=== PATIENT | female | born 1975 | race Caucasian/White ===

== ENCOUNTER 2020-10-13 08:27 | Day surgery (SDC) | payer BC, OTHER ==
[~2020-10-13] VITALS: Ht 152.4 cm; Wt 87.7 kg
[~2020-10-13 08:27] MED LIST: AMOXICILLIN 8751 TAB PO; AMOXICILLIN875 MG PO; ANTIVERT 25MG25 MG PO; BENADRYL25 M2 PO; CIMZIA200 MG/ML SC; EMBREL; ENBREL50 MG/ML SC; ENSTILAR 0.005%60 GM TP; FLEXERIL 1010 MG/TAB PO; GLUCOPHAGE1000 MG PO; HUMIRA40 MG/0.8 MR; IBUPROFEN1 CRY; IBUPROFEN200 M1 PO; LEVAQUIN 5500 MG/TAB PO; LORTAB 5/500 501 TAB PO; METHOTREXA2.5 MG/TAB PO; METHOTREXATE2.5 MG PO; NAPROXEN 3375 MG/TAB PO; NO HOME MEDICATIONS; NORCO 325 MG-51 TAB PO; PERCOCET 325 MG1 TA2 PO; PERCOCET 5/321 UDTAB PO; PHENERGAN 25 TA25 MG PO; ROXICODONE 55 MG/TAB PO; SIMPONI50 MG/0.5 SC; STELARA45 MG/0.5 SC; TALTZ AUTO80 MG/1 ML SQ; TEMOVATE OINT30 GM TOP; TREXALL5 MG; TREXALL5 MG PO; ULTRAM 50MG TAB50 MG PO; VALTREX1 GM PO; [UNRECOGNIZED DRUG - CODE] TOP; [UNRECOGNIZED DRUG - OTHER]; embrel
[2020-10-13] MEDS ORDERED: OZEMPIC0.25 MG/0. SQ (08:51)
[2020-10-13 09:13] VITALS: BP 148/84; PULSE 89; TEMP 98.7
[2020-10-13 10:00] VITALS: BP 110/74; PULSE 88
--- NOTE | 2020-10-13 10:00 | NUR ---
Pt to [facility] via cart from [employer]. Pt drowsy, but awake. Pt ambulates to recliner with stand by assistance. Warm blanket provided. in room. Soda and crackers given per pt request. Will continue to monitor. Call light within reach.
[2020-10-13 10:15] VITALS: BP 120/76; PULSE 83
--- NOTE | 2020-10-13 10:15 | NUR ---
Pt tolerating food and fluids without difficulties. Denies needs. Call light within reach.
[2020-10-13 10:30] VITALS: BP 136/97; PULSE 78
--- NOTE | 2020-10-13 10:30 | NUR ---
Discharge instructions reviewed. Pt voices understanding. IV site discontinued with all parts intact. Pt up to dress. Call light within reach.
--- NOTE | 2020-10-13 10:45 | NUR ---
Pt escorted to private car via wheel chair. Pt accompanied home by her .
== END 2020-10-13 10:45 | disposition home or self-care (01) ==
LOC: SDCO 08:27
DX: K62.89 Other specified diseases of anus and rectum (principal); K57.30 Diverticulosis of large intestine without perforation or abscess without bleeding; K64.8 Other hemorrhoids; K59.00 Constipation, unspecified; R19.7 Diarrhea, unspecified; K21.9 Gastro-esophageal reflux disease without esophagitis; M19.90 Unspecified osteoarthritis, unspecified site; E11.9 Type 2 diabetes mellitus without complications; Z79.84 Long term (current) use of oral hypoglycemic drugs; Z79.899 Other long term (current) drug therapy; Z90.710 Acquired absence of both cervix and uterus; Z88.5 Allergy status to narcotic agent; Z88.6 Allergy status to analgesic agent; Z88.8 Allergy status to other drugs, medicaments and biological substances; Z88.1 Allergy status to other antibiotic agents; Z20.822 Contact with and (suspected) exposure to COVID-19; Z90.49 Acquired absence of other specified parts of digestive tract; Z83.3 Family history of diabetes mellitus; Z80.0 Family history of malignant neoplasm of digestive organs; Z82.3 Family history of stroke
CPT/HCPCS: J2704; J7030

== ENCOUNTER 2021-03-30 08:44 | Emergency (ER) | payer BC ==
[~2021-03-30] VITALS: Ht 152.4 cm; Wt 86.4 kg
[~2021-03-30 08:44] MED LIST changes: +OZEMPIC0.25 MG/0. SQ
[2021-03-30 08:56] VITALS: TEMP 97
[2021-03-30] MEDS ORDERED: FOLIC ACID 11 MG/TA1 PO (09:05)
[2021-03-30] MEDS ORDERED: TREMFYA100 MG/1 M SQ (09:05)
[2021-03-30] MEDS ORDERED: ANTIVERT 25MG25 MG PO (09:06)
[2021-03-30 09:32] LABS: BASO # 0.1 K/mm3 (0.0-0.2); BASO % 0.6 % (0.0-2.0); EOS # 0.1 K/mm3 (0.0-0.7); EOS % 1.7 % (0-4.0); GRAN # 4.6 K/mm3 (1.4-6.5); GRAN % 59.1 % (42.2-75.2); HEMATOCRIT 43.7 % (37.0-47.0); HEMOGLOBIN 15.7 g/dl (12.5-16.0); LYMPH # 2.4 K/mm3 (1.2-3.4); LYMPH % 30.6 % (20.0-51.0); MEAN CELL VOLUME 82 fl (80.0-100.0); MEAN CORPUSCULAR HEMOGLOBIN 30 pg (27.0-31.0); MEAN CORPUSCULAR HGB CONC 36 g/dl (33.0-37.0); MEAN PLATELET VOLUME 9.8 fl (7.4-10.4); MONO # 0.6 K/mm3 (0.1-0.6); MONO % 7.6 % (1.7-9.3); PLATELET COUNT 231 K/mm3 (130-400); RED BLOOD COUNT 5.32 M/mm3 (4.10-5.30); REDCELL DISTRIBUTION WIDTH-CV 11.2 % (11.5-14.5)
[2021-03-30 09:43] LABS: ALANINE AMINOTRANSFERASE 21 U/L (0-55); ALBUMIN 3.7 gm/dL (3.5-5.0); ALKALINE PHOSPHATASE 116 U/L (0-750); ANION GAP 9 mmol/L (7-16); AST,SGOT 17 U/L (5-34); BILIRUBIN,TOTAL 0.8 mg/dL (0.2-1.2); BLOOD UREA NITROGEN 10 mg/dL (7-19); CALCIUM 9.3 mg/dL (8.4-10.2); CARBON DIOXIDE 22 mmol/L (22-29); CHLORIDE 106 mmol/L (98-107); CREATININE, serum 0.73 mg/dL (0.57-1.11); GLUCOSE 269 mg/dL (70-99); SODIUM 137 mmol/L (136-145); TOTAL PROTEIN 7.8 gm/dL (6.2-8.1)
[2021-03-30 10:02] LABS: TSH w REFLEX 0.886 uIU/mL (0.350-4.940)
[2021-03-30 10:03] LABS: COLLECTION METHOD CLEAN CATCH
[2021-03-30 10:05] LABS: TROPONIN-I < 0.010 ng/mL (0.00-0.033)
[2021-03-30 10:12] LABS: PH 7 (5-8); SQUAMOUS EPITHELIAL None Seen /hpf; URINE APPEARANCE Clear; URINE BACTERIA None Seen /hpf; URINE BILIRUBIN Negative (NEGATIVE); URINE BLOOD Negative (NEGATIVE); URINE COLOR Yellow; URINE GLUCOSE 3+ (NEGATIVE); URINE KETONE 1+ (NEGATIVE); URINE LEUKOCYTE ESTERASE Negative (NEGATIVE); URINE NITRATE Negative (NEGATIVE); URINE PROTEIN(semi-quant) Negative (NEGATIVE); URINE RBC 0-2 /hpf
[2021-03-30 12:24] VITALS: BP 139/80; PULSE 68
== END 2021-03-30 12:30 | disposition home or self-care (01) ==
LOC: COL.ER 08:44
PROVIDERS: Emergency Medicine
DX: R42 Dizziness and giddiness (principal); E11.9 Type 2 diabetes mellitus without complications; Z79.84 Long term (current) use of oral hypoglycemic drugs; Z32.02 Encounter for pregnancy test, result negative; Z20.822 Contact with and (suspected) exposure to COVID-19
CPT/HCPCS: J2060

== ENCOUNTER 2021-05-17 15:26 | Emergency (ER) | payer BC ==
[~2021-05-17] VITALS: Ht 152.4 cm; Wt 86.4 kg
[~2021-05-17 15:26] MED LIST changes: +FOLIC ACID 11 MG/TA1 PO; +TREMFYA100 MG/1 M SQ
[2021-05-17 15:35] VITALS: TEMP 98.7
[2021-05-17 16:02] LABS: COLLECTION METHOD CLEAN CATCH
[2021-05-17 16:08] LABS: HEMATOCRIT 46.9 % (37.0-47.0); HEMOGLOBIN 16.7 g/dl (12.5-16.0); MEAN CELL VOLUME 82 fl (80.0-100.0); MEAN CORPUSCULAR HEMOGLOBIN 29 pg (27.0-31.0); MEAN CORPUSCULAR HGB CONC 36 g/dl (33.0-37.0); MEAN PLATELET VOLUME 9.6 fl (7.4-10.4); PLATELET COUNT 245 K/mm3 (130-400); REDCELL DISTRIBUTION WIDTH-CV 11.3 % (11.5-14.5)
[2021-05-17 16:14] LABS: MUCOUS Present (NOT PRESENT); PH 5 (5-8); SQUAMOUS EPITHELIAL 0-2 /hpf (0-10); URINE APPEARANCE Clear (CLEAR/HAZY); URINE BACTERIA None Seen (NONE SEEN); URINE BILIRUBIN Negative (NEGATIVE); URINE BLOOD Negative (NEGATIVE); URINE COLOR Yellow (YELLOW); URINE GLUCOSE 3+ (NEGATIVE); URINE KETONE 2+ (NEGATIVE); URINE LEUKOCYTE ESTERASE Negative (NEGATIVE); URINE NITRATE Negative (NEGATIVE); URINE PROTEIN(semi-quant) Negative (NEGATIVE); URINE RBC 0-2 /hpf (0-2); URINE UROBILINOGEN Negative (NEGATIVE)
[2021-05-17 16:35] LABS: ALBUMIN 4.1 gm/dL (3.5-5.0); BILIRUBIN,TOTAL 1.1 mg/dL (0.2-1.2); CALCIUM 9.5 mg/dL (8.4-10.2); CREATININE, serum 0.78 mg/dL (0.57-1.11); TOTAL PROTEIN 8.4 gm/dL (6.2-8.1)
[2021-05-17 16:57] LABS: LYMPHOCYTE 4 % (20.0-51.0); NEUTROPHILS 94 % (42.0-75.2)
[2021-05-17 16:58] LABS: PLATELET ESTIMATE NORMAL (NORMAL)
[2021-05-17] MEDS ORDERED: ZOFRAN ODT4 MG PO ×3 (18:48→20:10)
[2021-05-17 19:45] VITALS: BP 123/79; PULSE 111
== END 2021-05-17 19:47 | disposition home or self-care (01) ==
LOC: COL.ER 15:26
PROVIDERS: Emergency Medicine
DX: R51.9 Headache, unspecified (principal); D72.829 Elevated white blood cell count, unspecified; E11.9 Type 2 diabetes mellitus without complications; Z20.822 Contact with and (suspected) exposure to COVID-19; Z79.84 Long term (current) use of oral hypoglycemic drugs
CPT/HCPCS: J1885; J2405; J2765; J7030

== ENCOUNTER → 2021-08-23 | Outpatient (CLI) | payer BC ==
[~2021-08-23] MED LIST changes: +ZOFRAN ODT4 MG PO
== END ==
LOC: MC.RAD 09:30
DX: Z12.31 Encounter for screening mammogram for malignant neoplasm of breast (principal)

== ENCOUNTER 2021-09-09 10:02 | Day surgery (SDC) | payer BC ==
[~2021-09-09] VITALS: Ht 152.4 cm; Wt 88.6 kg
[2021-09-09] MEDS ORDERED: FARXIGA5 PO (11:01)
[2021-09-09] MEDS ORDERED: LASIX 40MG TABL40 MG PO (11:01)
[2021-09-09] MEDS ORDERED: AMARYL1 MG PO (11:02)
[2021-09-09 11:07] VITALS: BP 163/88; PULSE 112; TEMP 98.9
[2021-09-09 12:50] VITALS: BP 90/52; PULSE 99; TEMP 98.1
[2021-09-09 13:05] VITALS: BP 116/82; PULSE 85; TEMP 98
[2021-09-09 13:20] VITALS: BP 122/70; PULSE 70; TEMP 98.2
== END 2021-09-09 13:37 | disposition home or self-care (01) ==
LOC: SDCO 10:02
DX: K21.00 Gastro-esophageal reflux disease with esophagitis, without bleeding (principal); K29.50 Unspecified chronic gastritis without bleeding; K44.9 Diaphragmatic hernia without obstruction or gangrene; E66.9 Obesity, unspecified; Z80.0 Family history of malignant neoplasm of digestive organs; Z79.899 Other long term (current) drug therapy
CPT/HCPCS: J2704; J7030

== ENCOUNTER 2022-08-08 16:50 | Emergency (ER) | payer BC ==
[~2022-08-08] VITALS: Ht 153.7 cm; Wt 88.6 kg
[~2022-08-08 16:50] MED LIST changes: +AMARYL1 MG PO; +FARXIGA5 PO; +LASIX 40MG TABL40 MG PO
[2022-08-08 18:57] LABS: BASO # 0.1 K/mm3 (0.0-0.2); BASO % 0.6 % (0.0-2.0); EOS # 0.1 K/mm3 (0.0-0.7); EOS % 1.2 % (0.0-4.0); GRAN # 5.7 K/mm3 (1.4-6.5); LYMPH # 3.9 K/mm3 (1.2-3.4); LYMPH % 36.4 % (20.0-51.0); MEAN CELL VOLUME 85 fl (80.0-100.0); MEAN CORPUSCULAR HEMOGLOBIN 29 pg (27-31); MEAN CORPUSCULAR HGB CONC 34 g/dl (33.0-37.0); MEAN PLATELET VOLUME 10.2 fl (7.4-10.4); MONO # 0.8 K/mm3 (0.1-0.6); MONO % 7.5 % (1.7-9.3); PLATELET COUNT 275 K/mm3 (130-400); RED BLOOD COUNT 5.15 M/mm3 (4.10-5.30); REDCELL DISTRIBUTION WIDTH-CV 11.7 % (11.5-14.5)
[2022-08-08 19:11] LABS: ALBUMIN 3.7 gm/dL (3.5-5.0); BILIRUBIN,TOTAL 0.5 mg/dL (0.2-1.2); C-REACTIVE PROTEIN 0.93 mg/dL (0.00-0.50); CALCIUM 9.5 mg/dL (8.4-10.2); CREATININE, serum 0.8 mg/dL (0.57-1.11); TOTAL PROTEIN 8.1 gm/dL (6.2-8.1)
[2022-08-08 19:13] LABS: COLLECTION METHOD CLEAN CATCH
[2022-08-08 19:34] LABS: MUCOUS Present (NOT PRESENT); SQUAMOUS EPITHELIAL 0-2 /hpf (0-10); URINE BACTERIA None Seen /hpf (NONE SEEN); URINE RBC 0-2 /hpf (0-2)
[2022-08-08 19:35] LABS: PH 5.5 (5-8); URINE APPEARANCE Hazy (CLEAR/HAZY); URINE BLOOD Negative (NEGATIVE); URINE COLOR Yellow (YELLOW); URINE GLUCOSE 3+ (NEGATIVE); URINE KETONE TRACE (NEGATIVE); URINE NITRATE Negative (NEGATIVE); URINE PROTEIN(semi-quant) Negative (NEGATIVE); URINE UROBILINOGEN 0.2 (NEGATIVE)
[2022-08-08 21:32] VITALS: BP 140/76; PULSE 86
[2022-08-08] MEDS ORDERED: FLEXERIL 1010 MG/TAB PO (21:32)
== END 2022-08-08 21:39 | disposition home or self-care (01) ==
LOC: COL.ER 16:50
PROVIDERS: Emergency Medicine
DX: M43.17 Spondylolisthesis, lumbosacral region (principal); R11.0 Nausea; Z86.39 Personal history of other endocrine, nutritional and metabolic disease; Z88.6 Allergy status to analgesic agent; Z87.442 Personal history of urinary calculi
CPT/HCPCS: J1885; J2405; J3010; J7030; Q9967

== ENCOUNTER → 2022-11-03 | Outpatient (CLI) | payer BC | LOC: MC.RAD 11:00 | DX: Z12.31 Encounter for screening mammogram for malignant neoplasm of breast (principal) ==

== ENCOUNTER → 2024-04-07 | Outpatient (CLI) | payer BC ==
[~2024-04-07] MED LIST changes: +FARXIGA10 PO; +Gadoterate 15 ML VIAL IV ONE; +MOUNJARO12.5 MG/0. SQ; +PRILOSEC 20MG20 MG PO; +PROTONIX 40MG T40 MG PO; +SAXENDA6 MG/ML SQ; +XANAX 0.5MG0.5 MG PO
== END ==
LOC: COL.RAD 15:54
DX: R43.1 Parosmia (principal)
CPT/HCPCS: A9575